=== PATIENT | male | born 1970 | race Hispanic/Latino ===

== ENCOUNTER 2020-02-27 12:47 | Emergency (ER) | payer OTHER ==
[2020-02-28 14:24] LABS: SARS-CoV-2 MS2 Positive; SARS-CoV-2 N Gene Positive; SARS-CoV-2 S Gene Positive; SARS-CoV-2 by NAA DETECTED (NotDetected); SARS-CoV-2 orf1ab Positive
== END 2020-02-27 13:18 | disposition home or self-care (01) ==
LOC: ERS 12:47
DX: U07.1 COVID-19 (principal)
CPT/HCPCS: 87635; 99283; U0003

== ENCOUNTER 2020-03-11 11:50 | Emergency (ER) | payer OTHER ==
[2020-03-13 13:23] LABS: SARS-CoV-2 MS2 Positive; SARS-CoV-2 N Gene Positive; SARS-CoV-2 S Gene Positive; SARS-CoV-2 by NAA DETECTED (NotDetected); SARS-CoV-2 orf1ab Negative
== END 2020-03-11 12:05 | disposition home or self-care (01) ==
LOC: ERS 11:50
DX: U07.1 COVID-19 (principal)
CPT/HCPCS: 87635; 99282; U0003

== ENCOUNTER 2022-03-25 12:17 | Emergency (ER) | payer OTHER, SELFPAY | END 2022-03-25 13:50 | disposition home or self-care (01) | LOC: ERS 12:17 | DX: R05.9 Cough, unspecified (principal); R68.83 Chills (without fever); R11.2 Nausea with vomiting, unspecified; R53.83 Other fatigue; Z20.822 Contact with and (suspected) exposure to COVID-19 | CPT/HCPCS: 99283; U0003; U0005 ==